=== PATIENT | female | born 1930 | race American Indian/Alaskan Native ===

== ENCOUNTER 2017-03-01 09:44 | Emergency (ER) | payer MEDICARE ==
[2017-03-01 11:16] LABS: Anion Gap 18 mmol/L; BUN/Creatinine Ratio 11.42; Blood Urea Nitrogen 8 mg/dL (7-17); Calcium 9.3 mg/dL (8.4-10.2); Carbon Dioxide 28 mmol/L (22-30); Chloride 99.4 mmol/L (98-107); Glucose 109 mg/dL (65-100); Hematocrit 37.9 % (30.3-42.9); Hemoglobin 12.5 gm/dl (10.1-14.3); Mean Corpuscular HGB Conc 33 % (30-34); Mean Corpuscular Hemoglobin 28 pg (28-32); Mean Corpuscular Volume 86 fl (79-97); Platelet Count 219 K/mm3 (140-440); Potassium 3.9 mmol/L (3.6-5.0); Red Blood Count 4.39 M/mm3 (3.65-5.03); Red Cell Distribution Width 16.3 % (13.2-15.2); Sodium 141 mmol/L (137-145); White Blood Count 4.3 K/mm3 (4.5-11.0)
[2017-03-01 12:12] LABS: Basophils % (Manual) 0 % (0.0-1.8); Blastocytes % (Manual) 0 %
[2017-03-01 12:13] LABS: Schistocytes Rare
[2017-03-01 12:14] LABS: Burr Cells 1+; Ovalocytes Few; Poikilocytosis 1+
[2017-03-01 12:15] LABS: Crenated RBC Rare; Diff Status Complete; Helmet Cells Rare; Platelet Estimate Consistent w Auto; Smudge Cells Rare
[2017-03-01] MEDS ORDERED: TYLENOL PO ONE (12:43)
[2017-03-01] MEDS ORDERED: FLONASE NS ONE (12:43)
--- NOTE | 2017-03-01 12:44 | Emergency Department Report ---
ED General Adult HPI - General Chief complaint: Dizziness Stated complaint: DIZZY,RT EAR/SINUS PAIN Time Seen by Provider: 03/01/17 12:32 Source: patient, RN notes reviewed Mode of arrival: Ambulatory Limitations: No Limitations - History of Present Illness Initial comments: This is an 86-year-old female. She is previously unknown to me. Her primary care doctor is Dr. Olea. She has a past medical history of hypertension. The patient presents to the ER with 1 week of frontal sinus pressure and pain, nasal pain, right-sided ear pain. The pain is achy. It increases with palpation, it decreases with rest. There is no severe, sudden, thunderclap headache. There is no neck pain. There is no focal extremity weakness or numbness. There is no change in vision. There is no change in speech. There is no chest pain or shortness of breath. There are no irritative or obstructive urinary symptoms. Patient denies tinnitus. Patient denies vertigo. Patient also reports that she feels somewhat dizzy, but she describes syncope. There is no posterior leg pain. There is no posterior leg swelling. No recent surgeries within the past month. Patient ambulates at baseline with a walker, and lives in a senior citizen community. -: Gradual Location: face Severity scale (0 -10): 0 Quality: aching Consistency: intermittent Worsens with: movement Associated Symptoms: headaches. denies: confusion, chest pain, cough, diaphoresis, loss of appetite, shortness of breath, syncope, weakness - Related Data Previous Rx's Medication Instructions Recorded Last Taken Type Chlorthalidone [Thalitone] 25 mg PO QDAY #14 tablet 12/10/15 Unknown Rx Acetaminophen [Tylenol Arthritis] 650 mg PO Q6HR PRN #30 tablet.er 03/01/17 Unknown Rx Fluticasone [Flonase] 1 spray NS QDAY #1 bottle 03/01/17 Unknown Rx Allergies Allergy/AdvReac Type Severity Reaction Status Date / Time No Known Allergies Allergy Verified 10/19/16 06:48 ED Review of Systems ROS: Stated complaint: DIZZY,RT EAR/SINUS PAIN Other details as noted in HPI Constitutional: denies: fever, malaise Eyes: denies: eye discharge, vision change ENT: ear pain, congestion. denies: throat pain, hearing loss, epistaxis Respiratory: denies: shortness of breath Cardiovascular: denies: chest pain, syncope Gastrointestinal: denies: abdominal pain Genitourinary: as per HPI. denies: urgency, dysuria Musculoskeletal: arthralgia, myalgia, other (chronic) Neurological: denies: headache, weakness, numbness, paresthesias, abnormal gait , vertigo ED Past Medical Hx - Past Medical History Previous Medical History?: Yes Hx Hypertension: Yes Additional medical history: No history of DVT. States not on an anticoagulant now. - Surgical History Past Surgical History?: Yes Additional Surgical History: carpel tunnel bilateral. right knee replacement. "left lung surgery" - Social History Smoking Status: Never Smoker Substance Use Type: None - Medications Home Medications: Home Medications Medication Instructions Recorded Confirmed Last Taken Type Chlorthalidone [Thalitone] 25 mg PO QDAY #14 tablet 12/10/15 Unknown Rx Acetaminophen [Tylenol Arthritis] 650 mg PO Q6HR PRN #30 tablet.er 03/01/17 Unknown Rx Fluticasone [Flonase] 1 spray NS QDAY #1 bottle 03/01/17 Unknown Rx ED Physical Exam - General Limitations: No Limitations General appearance: alert, in no apparent distress - Head Head exam: Present: atraumatic, normocephalic - Eye Eye exam: Present: normal appearance, PERRL, EOMI. Absent: nystagmus - ENT ENT exam: Present: normal exam, normal orophraynx, mucous membranes moist, TM's normal bilaterally, normal external ear exam, other (there is no mastoid tenderness. There is frontal sinus tenderness. There is maxillary sinus tenderness) - Neck Neck exam: Present: normal inspection, full ROM. Absent: tenderness, meningismus - Respiratory Respiratory exam: Present: normal lung sounds bilaterally. Absent: respiratory distress, wheezes, rales, rhonchi, stridor, chest wall tenderness, accessory muscle use, decreased breath sounds, prolonged expiratory - Cardiovascular Cardiovascular Exam: Present: regular rate, normal rhythm, normal heart sounds. Absent: bradycardia, tachycardia, irregular rhythm, systolic murmur, diastolic murmur, rubs, gallop - GI/Abdominal GI/Abdominal exam: Present: soft, normal bowel sounds. Absent: distended, tenderness, guarding, rebound, rigid, pulsatile mass - Extremities Exam Extremities exam: Present: normal inspection, full ROM, normal capillary refill. Absent: pedal edema, joint swelling, calf tenderness - Back Exam Back exam: Present: normal inspection, full ROM. Absent: tenderness, CVA tenderness (R), CVA tenderness (L), muscle spasm, paraspinal tenderness, vertebral tenderness - Neurological Exam Neurological exam: Present: alert, oriented X3, normal gait (the patient walks with a walker, and with minimal assistance with a one-person assist), other ( Extraocular movements intact. Tongue midline. No facial droop. Facial sensation intact to light touch in the V1, V2, V3 distribution bilaterally. 5 and 5 strength in 4 extremities.. Sensation is intact to light touch in 4 extremities.). Absent: motor sensory deficit - Psychiatric Psychiatric exam: Present: normal affect, normal mood - Skin Skin exam: Present: warm, dry, intact, normal color. Absent: rash ED Course Vital Signs 03/01/17 03/01/17 03/01/17 10:30 12:03 13:25 Temperature 98.5 F Pulse Rate 75 Respiratory 18 16 18 Rate Blood Pressure 109/76 Blood Pressure [Left] O2 Sat by Pulse 100 Oximetry 03/01/17 03/01/17 14:25 15:16 Temperature Pulse Rate 66 Respiratory 18 18 Rate Blood Pressure Blood Pressure 150/78 [Left] O2 Sat by Pulse 98 Oximetry ED Medical Decision Making - Lab Data Result diagrams: 03/01/17 10:47 03/01/17 10:47 Vital Signs 03/01/17 03/01/17 10:30 12:03 Temperature 98.5 F Pulse Rate 75 Respiratory 18 16 Rate Blood Pressure 109/76 O2 Sat by Pulse 100 Oximetry Lab Results 03/01/17 03/01/17 Range/Units 10:47 10:47 WBC 4.3 L (4.5-11.0) K/mm3 RBC 4.39 (3.65-5.03) M/mm3 Hgb 12.5 (10.1-14.3) gm/dl Hct 37.9 (30.3-42.9) % MCV 86 (79-97) fl MCH 28 (28-32) pg MCHC 33 (30-34) % RDW 16.3 H (13.2-15.2) % Plt Count 219 (140-440) K/mm3 Add Manual Diff Complete Total Counted 100 Seg Neutrophils % [employer] Intern Seg Neuts % (Manual) 39.0 L (40.0-70.0) % Band Neutrophils % 0 % Lymphocytes % (Manual) 54.0 H (13.4-35.0) % Reactive Lymphs % (Man) 0 % Monocytes % (Manual) 6.0 (0.0-7.3) % Eosinophils % (Manual) 1.0 (0.0-4.3) % Basophils % (Manual) 0 (0.0-1.8) % Metamyelocytes % 0 % Myelocytes % 0 % Promyelocytes % 0 % Blast Cells % 0 % Nucleated RBC % Not Reportable Seg Neutrophils # Man 1.7 L (1.8-7.7) K/mm3 Band Neutrophils # 0.0 K/mm3 Lymphocytes # (Manual) 2.3 (1.2-5.4) K/mm3 Abs React Lymphs (Man) 0.0 K/mm3 Monocytes # (Manual) 0.3 (0.0-0.8) K/mm3 Eosinophils # (Manual) 0.0 (0.0-0.4) K/mm3 Basophils # (Manual) 0.0 (0.0-0.1) K/mm3 Metamyelocytes # 0.0 K/mm3 Myelocytes # 0.0 K/mm3 Promyelocytes # 0.0 K/mm3 Blast Cells # 0.0 K/mm3 WBC Morphology Not Reportable Hypersegmented Neuts Not Reportable Hyposegmented Neuts Not Reportable Hypogranular Neuts Not Reportable Smudge Cells Rare Toxic Granulation Not Reportable Toxic Vacuolation Not Reportable Dohle Bodies Not Reportable Pelger-Huet Anomaly Not Reportable Jevon Rods Not Reportable Platelet Estimate Consistent w auto Clumped Platelets Not Reportable Plt Clumps, EDTA Not Reportable Large Platelets Not Reportable Giant Platelets Not Reportable Platelet Satelliting Not Reportable Plt Morphology Comment Not Reportable RBC Morphology Not Reportable Dimorphic RBCs Not Reportable Polychromasia Not Reportable Hypochromasia Not Reportable Poikilocytosis 1+ Anisocytosis Not Reportable Microcytosis Not Reportable Macrocytosis Not Reportable Spherocytes Not Reportable Pappenheimer Bodies Not Reportable Sickle Cells Not Reportable Target Cells Not Reportable Tear Drop Cells Not Reportable Ovalocytes Few Helmet Cells Rare Le-[place] Bodies Not Reportable Lu[place]ne Rings Not Reportable Daniel Cells 1+ Bite Cells Not Reportable Crenated Cell Rare Elliptocytes Not Reportable Acanthocytes (Spur) Not Reportable Rouleaux Not Reportable Hemoglobin C Crystals Not Reportable Schistocytes Rare Malaria parasites Not Reportable Jorge Bodies Not Reportable Hem Pathologist Commnt No Sodium 141 (137-145) mmol/L Potassium 3.9 (3.6-5.0) mmol/L Chloride 99.4 (98-107) mmol/L Carbon Dioxide 28 (22-30) mmol/L Anion Gap 18 mmol/L BUN 8 (7-17) mg/dL Creatinine 0.7 (0.7-1.2) mg/dL Estimated GFR > 60 ml/min BUN/Creatinine Ratio 11.42 % Glucose 109 H (65-100) mg/dL Calcium 9.3 (8.4-10.2) mg/dL - EKG Data -: EKG Interpreted by Me - EKG Data 03/01/17 13:47 normal sinus, 69 bpm, normal axis, normal intervals, poor R-wave progression, abnormal EKG, not morphologically consistent with STEMI, appears unchanged when compared to prior EKG from October 2016, with the exception of progression of poor R-wave progression. - Radiology Data Radiology results: report reviewed, image reviewed Noncontrast CT scan of the brain is negative for acute disease - Medical Decision Making Differential diagnosis: Sinusitis, vertigo, intracranial hemorrhage, viral syndrome, bronchitis Assessment and plan: 86-year-old female with complaint of facial pain, ear pain , stuffiness, nonspecific dizziness. She is afebrile, with reassuring vital signs, has a GCS of 15, with an NIH score of 0. There is no temporal artery tenderness, there is no change in vision, there is no jaw claudication. Therefore, I think temporal arteritis is unlikely. She had reproducible sinus tenderness and maxillary sinus tenderness. There is no mastoid tenderness, and her bilateral ear examinations were unremarkable. She walks with a steady gait with minimal assistance, laboratory studies, has a GCS of 15, with an NIH score is 0. The patient felt improved at the symptomatic therapy, and is suitable follow up with outpatient primary care doctor at this time. Noncontrast CT scan of the brain is negative for acute findings. Critical care attestation.: If time is entered above; I have spent that time in minutes in the direct care of this critically ill patient, excluding procedure time. ED Disposition Clinical Impression: Facial pain Disposition: DC-01 TO HOME OR SELFCARE Is pt being admited?: No Does the pt Need Aspirin: No Condition: Stable Instructions: Sinusitis (ED) Additional Instructions: Take the medications as needed/directed. Follow-up with the primary care doctor within the next week. Return to the ER right away with fevers, chills, chest pain, shortness of breath, confusion, unsteady gait, inability to tolerate liquid feeds. Prescriptions: Acetaminophen [Tylenol Arthritis] 650 mg PO Q6HR PRN #30 tablet.er PRN Reason: Pain Fluticasone [Flonase] 1 spray NS QDAY #1 bottle Referrals: PRIMARY CAREMD [Primary Care Provider] - 3-5 Days JEREMI UNDERWOOD MD [Staff Physician] - 3-5 Days
--- NOTE | 2017-03-01 13:33 | Cat Scan Report ---
CT scan of head without contrast: History: Facial pain, dizziness. Findings: Ventricles are normal in size and midline in location. No evidence of acute ischemia, hemorrhage or mass. Mild volume loss. No extra-axial fluid collection. Normal brainstem and cerebellum. Normal sinuses and mastoid air cells. Impression: Mild volume loss. No acute intracranial abnormality.
[2017-03-01 14:43] LABS: Bilirubin,Urine NEG (Negative); Blood,Urine NEG (Negative); Ketones,Urine NEG (Negative); Leukocyte Esterase,Urine NEG (Negative); Mucus,Urine 1+ /HPF; Nitrite,Urine NEG (Negative); Protein,Urine <15 mg/dL mg/dL (Negative); Urobilinogen,Urine < 2.0 mg/dL (<2.0); WBC,Urine < 1.0 /HPF (0.0-6.0)
[2017-03-01 15:16] VITALS: BP 150/78
== END 2017-03-01 15:30 | disposition home or self-care (01) ==
LOC: ED 09:44
DX: R51 Headache (principal); I10 Essential (primary) hypertension
CPT/HCPCS: 36415; 51701; 70450; 80048; 81001; 85007; 85025; 93005; 93010

== ENCOUNTER 2017-06-27 11:06 | Emergency (ER) | payer MEDICARE ==
--- NOTE | 2017-06-27 13:46 | Emergency Department Report ---
- General Chief complaint: Skin/Abscess/Foreign Body Stated complaint: BOIL ON LIP Time Seen by Provider: 06/27/17 13:45 Source: patient, family Mode of arrival: Ambulatory Limitations: No Limitations - History of Present Illness Initial comments: Patient here states that she has a boil on her right labia. Patient fitted started has a scratch and she started scratching it earlier this week and then it got bigger. She denies any urinary burning frequency or urgency. Denies any similar problem. She said her pain is rated 10 to her vaginal area. Denies any vaginal discharge. Denies any back or abdominal pain. Denies any fever or chills. Denies any drainage from site. She says she was taking over- the-counter pain medication but she thinks that it needs to be looked at and she cannot get in touch with her doctor. complaint: abscess/boil Onset/Timin -: week(s) Tetanus Up to Date: no Location: genitals Severity: mild Severity scale (0 -10): 3 Quality: other (sore) Consistency: intermittent Improves with: immobilization, rest Worsens with: palpation, movement Context: other (she reports that she has a abscess) Associated symptoms: denies other symptoms Treatments Prior to Arrival: OTC topical medication, other (OTC meds) - Related Data Previous Rx's Medication Instructions Recorded Last Taken Type Chlorthalidone [Thalitone] 25 mg PO QDAY #14 tablet 12/10/15 Unknown Rx Acetaminophen [Tylenol Arthritis] 650 mg PO Q6HR PRN #30 tablet.er 03/01/17 Unknown Rx Fluticasone [Flonase] 1 spray NS QDAY #1 bottle 03/01/17 Unknown Rx Acetaminophen/Codeine [Tylenol 1 tab PO Q6H PRN #12 tab 06/27/17 Unknown Rx /Codeine # 3 tab] Ibuprofen [Motrin] 600 mg PO Q8H PRN #12 tablet 06/27/17 Unknown Rx Sulfamethoxazole/Trimethoprim 1 each PO BID #20 tablet 06/27/17 Unknown Rx [Bactrim DS TAB] Allergies Allergy/AdvReac Type Severity Reaction Status Date / Time No Known Allergies Allergy Verified 10/19/16 06:48 Abscess Boil HPI - HPI Chief Complaint: Skin/Abscess/Foreign Body Stated Complaint: BOIL ON LIP Time Seen by Provider: 06/27/17 13:45 Home Medications: Previous Rx's Medication Instructions Recorded Last Taken Type Chlorthalidone [Thalitone] 25 mg PO QDAY #14 tablet 12/10/15 Unknown Rx Acetaminophen [Tylenol Arthritis] 650 mg PO Q6HR PRN #30 tablet.er 03/01/17 Unknown Rx Fluticasone [Flonase] 1 spray NS QDAY #1 bottle 03/01/17 Unknown Rx Acetaminophen/Codeine [Tylenol 1 tab PO Q6H PRN #12 tab 06/27/17 Unknown Rx /Codeine # 3 tab] Ibuprofen [Motrin] 600 mg PO Q8H PRN #12 tablet 06/27/17 Unknown Rx Sulfamethoxazole/Trimethoprim 1 each PO BID #20 tablet 06/27/17 Unknown Rx [Bactrim DS TAB] Allergies/Adverse Reactions: Allergies Allergy/AdvReac Type Severity Reaction Status Date / Time No Known Allergies Allergy Verified 10/19/16 06:48 ED Review of Systems ROS: Stated complaint: BOIL ON LIP Other details as noted in HPI Comment: All other systems reviewed and negative Constitutional: no symptoms reported Respiratory: no symptoms reported Cardiovascular: denies: chest pain, palpitations, dyspnea on exertion, edema, syncope Gastrointestinal: denies: abdominal pain, nausea, vomiting, diarrhea Genitourinary: other (patient reports that she has abscess to her right labia). denies: urgency, dysuria, frequency, hematuria, discharge Musculoskeletal: denies: back pain, arthralgia Skin: other (abscess to right labia) Neurological: denies: headache ED Past Medical Hx - Past Medical History Previous Medical History?: Yes Hx Hypertension: Yes Hx Seizures: Yes Additional medical history: No history of DVT. States not on an anticoagulant now. - Surgical History Past Surgical History?: Yes Additional Surgical History: carpel tunnel bilateral. right knee replacement. "left lung surgery" - Family History Family history: no significant - Social History Smoking Status: Never Smoker Substance Use Type: None - Medications Home Medications: Home Medications Medication Instructions Recorded Confirmed Last Taken Type Chlorthalidone [Thalitone] 25 mg PO QDAY #14 tablet 12/10/15 Unknown Rx Acetaminophen [Tylenol Arthritis] 650 mg PO Q6HR PRN #30 tablet.er 03/01/17 Unknown Rx Fluticasone [Flonase] 1 spray NS QDAY #1 bottle 03/01/17 Unknown Rx Acetaminophen/Codeine [Tylenol 1 tab PO Q6H PRN #12 tab 06/27/17 Unknown Rx /Codeine # 3 tab] Ibuprofen [Motrin] 600 mg PO Q8H PRN #12 tablet 06/27/17 Unknown Rx Sulfamethoxazole/Trimethoprim 1 each PO BID #20 tablet 06/27/17 Unknown Rx [Bactrim DS TAB] ED Physical Exam - General Limitations: No Limitations General appearance: alert, in no apparent distress - Head Head exam: Present: atraumatic, normocephalic, normal inspection - Eye Eye exam: Present: normal appearance, PERRL, EOMI Pupils: Present: normal accommodation - ENT ENT exam: Present: normal exam, normal orophraynx, mucous membranes moist - Neck Neck exam: Present: normal inspection, full ROM. Absent: tenderness, meningismus, lymphadenopathy - Respiratory Respiratory exam: Present: normal lung sounds bilaterally. Absent: respiratory distress, chest wall tenderness - Cardiovascular Cardiovascular Exam: Present: regular rate, normal rhythm, normal heart sounds. Absent: systolic murmur, diastolic murmur - GI/Abdominal GI/Abdominal exam: Present: soft. Absent: distended, rebound, rigid, normal bowel sounds - External exam: Present: erythema, swelling (right labia). Absent: normal external exam, lesions, lacerations, ecchymosis, bleeding Speculum exam: Absent: tissue, laceration - Expanded Exam Expanded Female exam: Present: vulvar erythema (patient with erythema and generated mild fluctuance to right labia.), vulvar tenderness (right labia). Absent: vaginal laceration, tissue present in vagina, herpetic lesions, foreign body - Extremities Exam Extremities exam: Present: normal inspection, full ROM, normal capillary refill , other (clubbing, cyanosis or edema. +2 pulses to all extremities. No neurovascular compromise). Absent: tenderness, pedal edema, joint swelling, calf tenderness - Back Exam Back exam: Present: normal inspection, full ROM. Absent: tenderness, CVA tenderness (R), CVA tenderness (L), muscle spasm, paraspinal tenderness, vertebral tenderness, rash noted - Neurological Exam Neurological exam: Present: alert, oriented X3, normal gait, reflexes normal. Absent: motor sensory deficit - Psychiatric Psychiatric exam: Present: normal affect, normal mood - Skin Skin exam: Present: warm, dry, erythema, other (abscess right labia) - Expanded Skin Exam Expanded Type of lesion: Present: abscess Distribution of rash: genitals (right labia) Description of rash: Present: size (4 x2 cm), tenderness, erythematous, swelling , fluctuant (mild fluctuance). Absent: discharge, indurated ED Course Vital Signs 06/27/17 11:15 Temperature 98.1 F Pulse Rate 84 Respiratory 16 Rate Blood Pressure 172/88 O2 Sat by Pulse 98 Oximetry - Reevaluation(s) Reevaluation #1: 06/27/17 17:31 She given ibuprofen 600 mg without any relief of pain from vaginal area therefore she was given [place] 12/3251 tablets by mouth. Please see procedure note for incision and drainage. Patient is stable tolerated procedure well - I & D Right Vagina Type of Procedure: Complex Site: labia majora Blade Size: 11 I & D Procedure: betadine prep, sterile drapes applied, sterile dressing applied , gauze wick placed Progress: Procedure note: Under sterile procedure brought along an abscess cleansed with iodine and normal saline. Patient 5 mL of 2% lidocaine instilled in abscess area. #11-gauge blade used to make 0.25 centimeter incision. Expressed a small amount of copious serous saying drainage from site. Area around fluctuance still with indurated area. Iodoform gauze used to pack site and sterile dry dressing in place with had. Patient given tetanus vaccination. She tolerated procedure well and told to return on Saturday for reevaluation of abscess and possible removal of packing. ED Medical Decision Making - Medical Decision Making ED course: [place] wrap with Bartolone and abscess to right labia majora. Please refer to procedure note for details on incision and drainage. I chose to pack site with iodoform packing and instead of work catheter after collaborating with Dr. Abdullahi once area to be packed with iodoform packing. Patient tolerated procedure well. She was given Boostrix 0.5 mL, Motrin 600 mg and [place] 5/325 2 tablets prior to procedure. Patient was given clindamycin 600 mg IM after procedure and she tolerated well. I discussed with patient that she has to keep affected area clean and dry and apply warm compresses 3-4 times a day to affected area to chest change gauze dressing in but to leave packing in until seen in 4 days. Patient was understanding the discharge diagnosis and treatment plan and discharged home with prescription for Motrin, Tylenol 3 and Bactrim DS. Patient discharged from emergency room and she will be driven home by her family member. Critical care attestation.: If time is entered above; I have spent that time in minutes in the direct care of this critically ill patient, excluding procedure time. ED Disposition Clinical Impression: Bartholin's gland abscess, Vaginal pain, Cellulitis of female genitalia Disposition: TO HOME OR SELFCARE Is pt being admited?: No Does the pt Need Aspirin: No Condition: Stable Instructions: Incision and Drainage (ED), Abscess (ED), Cellulitis (ED) Additional Instructions: Take antibiotic as prescribed Follow-up with your primary care physician in 5 days days Keep affected area clean and dry. Followed discharge instruction on acute wound care . Please return to emergency room if you develop increasing redness, streaking, fever, difficulty moving in and the left forearm and increase in pain otherwise return to the emergency room in 4 days to reevaluate abscess and possible removal of packing. Plan warm compresses to affected area 3-4 times a day. Do not drive or operate heavy machinery while taking Tylenol No. 3 as this medication causes drowsiness Please do not remove packing Prescriptions: Acetaminophen/Codeine [Tylenol /Codeine # 3 tab] 1 tab PO Q6H PRN #12 tab PRN Reason: Pain Ibuprofen [Motrin] 600 mg PO Q8H PRN #12 tablet PRN Reason: Pain Sulfamethoxazole/Trimethoprim [Bactrim DS TAB] 1 each PO BID #20 tablet Referrals: PRIMARY CARE, [Primary Care Provider] - 07/02/17 return to, emergency room [Other] - 07/01/17
[2017-06-27] MEDS ORDERED: XYLOCAINE 1% MPF 5 mL INFILTRATI ONE (13:47)
[2017-06-27] MEDS ORDERED: MOTRIN PO ONE (13:47)
[2017-06-27] MEDS ORDERED: BOOSTRIX IM ONE (13:48)
[2017-06-27] MEDS ORDERED: NORCO 5/325 PO ONE (16:41)
[2017-06-27] MEDS ORDERED: NORCO 5/325 ONE (16:43)
[2017-06-27 17:50] VITALS: BP 160/70
== END 2017-06-27 17:46 | disposition home or self-care (01) ==
LOC: ED 11:06
DX: N75.1 Abscess of Bartholin's gland (principal); I10 Essential (primary) hypertension
CPT/HCPCS: 90471; 90715

== ENCOUNTER 2017-07-01 11:19 | Emergency (ER) | payer MEDICARE ==
[2017-07-01 11:33] VITALS: BP 133/76
--- NOTE | 2017-07-01 15:00 | Emergency Department Report ---
- General Chief Complaint: Laceration/Recheck/Suture Stated Complaint: WOUND CHECK Source: patient Mode of arrival: Ambulatory Limitations: No Limitations - History of Present Illness Initial Comments: pt presents for wound check s/p I&D for bartholin cyst 3 days ago, pt denies fever or chills no n/v no bleeding no abdominal pain vaginal bleeding or discharge. Onset/Timin -: days(s), unknown Location: genitals, other (bartholin cyst right labia ) Place: home Patient Tetanus UTD: Yes Associated Symptoms: pain - Related Data Previous Rx's Medication Instructions Recorded Last Taken Type Chlorthalidone [Thalitone] 25 mg PO QDAY #14 tablet 12/10/15 Unknown Rx Acetaminophen [Tylenol Arthritis] 650 mg PO Q6HR PRN #30 tablet.er 03/01/17 Unknown Rx Fluticasone [Flonase] 1 spray NS QDAY #1 bottle 03/01/17 Unknown Rx Acetaminophen/Codeine [Tylenol 1 tab PO Q6H PRN #12 tab 06/27/17 Unknown Rx /Codeine # 3 tab] Ibuprofen [Motrin] 600 mg PO Q8H PRN #12 tablet 06/27/17 Unknown Rx Sulfamethoxazole/Trimethoprim 1 each PO BID #20 tablet 06/27/17 Unknown Rx [Bactrim DS TAB] Allergies Allergy/AdvReac Type Severity Reaction Status Date / Time No Known Allergies Allergy Verified 10/19/16 06:48 ED Review of Systems ROS: Stated complaint: WOUND CHECK Other details as noted in HPI Constitutional: denies: chills, fever Eyes: denies: eye pain, eye discharge, vision change ENT: denies: ear pain, throat pain Respiratory: denies: cough, shortness of breath, wheezing Cardiovascular: denies: chest pain, palpitations Endocrine: no symptoms reported Gastrointestinal: denies: abdominal pain, nausea, diarrhea Genitourinary: denies: urgency, dysuria, discharge Musculoskeletal: denies: back pain, joint swelling, arthralgia Skin: other (abascess right labia) Neurological: denies: headache, weakness, paresthesias Psychiatric: denies: anxiety, depression Hematological/Lymphatic: denies: easy bleeding, easy bruising ED Past Medical Hx - Past Medical History Previous Medical History?: Yes Hx Hypertension: Yes Hx Seizures: Yes Additional medical history: No history of DVT. States not on an anticoagulant now. - Surgical History Past Surgical History?: Yes Additional Surgical History: carpel tunnel bilateral. right knee replacement. "left lung surgery" - Social History Smoking Status: Never Smoker Substance Use Type: Alcohol - Medications Home Medications: Home Medications Medication Instructions Recorded Confirmed Last Taken Type Chlorthalidone [Thalitone] 25 mg PO QDAY #14 tablet 12/10/15 Unknown Rx Acetaminophen [Tylenol Arthritis] 650 mg PO Q6HR PRN #30 tablet.er 03/01/17 Unknown Rx Fluticasone [Flonase] 1 spray NS QDAY #1 bottle 03/01/17 Unknown Rx Acetaminophen/Codeine [Tylenol 1 tab PO Q6H PRN #12 tab 06/27/17 Unknown Rx /Codeine # 3 tab] Ibuprofen [Motrin] 600 mg PO Q8H PRN #12 tablet 06/27/17 Unknown Rx Sulfamethoxazole/Trimethoprim 1 each PO BID #20 tablet 06/27/17 Unknown Rx [Bactrim DS TAB] ED Physical Exam - General Limitations: No Limitations General appearance: alert, in no apparent distress - Head Head exam: Present: atraumatic, normocephalic - Eye Eye exam: Present: normal appearance - ENT ENT exam: Present: mucous membranes moist - Neck Neck exam: Present: normal inspection - Respiratory Respiratory exam: Present: normal lung sounds bilaterally. Absent: respiratory distress - Cardiovascular Cardiovascular Exam: Present: regular rate, normal rhythm. Absent: systolic murmur, diastolic murmur, rubs, gallop - GI/Abdominal GI/Abdominal exam: Present: soft, normal bowel sounds - Rectal Rectal exam: Present: deferred - External exam: Present: other (bartholin cyst s/p I&D ) - Extremities Exam Extremities exam: Present: normal inspection - Back Exam Back exam: Present: normal inspection - Neurological Exam Neurological exam: Present: alert, oriented X3 - Psychiatric Psychiatric exam: Present: normal affect, normal mood - Skin Skin exam: Present: warm, dry, intact, normal color, other (abscess bartholin ) . Absent: rash ED Course Vital Signs 07/01/17 11:31 Temperature 98.4 F Pulse Rate 73 Respiratory 16 Rate Blood Pressure 133/76 O2 Sat by Pulse 95 Oximetry ED Medical Decision Making - Medical Decision Making pt presents for wound check s/p bartholin cyst I&d 3 days ago, wick removed, no erythema scant serous discharge no erythema no symptoms of infection pt given wound care instructions pt will follow up Dr. Muhammad [phone] in 1-2 days, pt verbalized agreement and understanding of discharge plan. Critical care attestation.: If time is entered above; I have spent that time in minutes in the direct care of this critically ill patient, excluding procedure time. ED Disposition Clinical Impression: Wound check, abscess Disposition: TO HOME OR SELFCARE Is pt being admited?: No Does the pt Need Aspirin: No Condition: Good Instructions: Bartholin Cyst (ED) Referrals: PRIMARY CAREMD [Primary Care Provider] - 3-5 Days DAVID MUHAMMAD MD [Staff Physician] - 3-5 Days Forms: Work/School Release Form(ED) Time of Disposition: 15:01
== END 2017-07-01 15:06 | disposition home or self-care (01) ==
LOC: ED 11:19
DX: Z48.01 Encounter for change or removal of surgical wound dressing (principal); I10 Essential (primary) hypertension

== ENCOUNTER 2018-05-15 12:57 | Emergency (ER) | payer MEDICARE ==
[2018-05-15 13:06] VITALS: BP 172/80
--- NOTE | 2018-05-15 13:26 | Emergency Department Report ---
ED Headache HPI - General Chief Complaint: Headache Stated Complaint: SINUS Time Seen by Provider: 05/15/18 13:10 - History of Present Illness Initial Comments: Patient is a 7-year-old asthmatic female who is presenting with sinus pressure and headache. Patient states he has had a frontal headache as well as bilateral maxillary sinuses past 2-3 days. Patient denies any fever cough "congestion of nausea vomiting at this time. Patient states as a pressure sensation in his anterolateral tenderness severity. Patient's vagina take Flonase however it is not helped. These symptoms by themselves. Allergies/Adverse Reactions: Allergies No Known Allergies Allergy (Verified 10/19/16 06:48) Home Medications: Ambulatory Orders Chlorthalidone [Thalitone] 25 mg PO QDAY #14 tablet 12/10/15 Acetaminophen [Tylenol Arthritis] 650 mg PO Q6HR PRN #30 tablet.er 03/01/17 Fluticasone [Flonase] 1 spray NS QDAY #1 bottle 03/01/17 Acetaminophen/Codeine [Tylenol /Codeine # 3 tab] 1 tab PO Q6H PRN #12 tab Ibuprofen [Motrin] 600 mg PO Q8H PRN #12 tablet 06/27/17 Sulfamethoxazole/Trimethoprim [Bactrim DS TAB] 1 each PO BID #20 tablet Amoxicillin/Potassium Clav [Augmentin 875-125 Tablet] 1 each PO BID #14 tablet 05/15/18 Fluticasone [Flonase] 1 spray NS QDAY #1 bottle 05/15/18 HYDROcodone/APAP 5-325 [[place] 5/325] 1 each PO Q4HR PRN #12 tablet 05/15/18 predniSONE [Deltasone] 10 mg PO QDAY #5 tab 05/15/18 ED Review of Systems ROS: Stated complaint: SINUS Other details as noted in HPI Comment: All other systems reviewed and negative ED Past Medical Hx - Past Medical History Previous Medical History?: Yes Hx Hypertension: Yes Hx Seizures: Yes Additional medical history: No history of DVT. States not on an anticoagulant now. - Surgical History Past Surgical History?: Yes Additional Surgical History: carpel tunnel bilateral. right knee replacement. "left lung surgery" - Social History Smoking Status: Never Smoker Substance Use Type: None - Medications Home Medications: Home Medications Medication Instructions Recorded Confirmed Last Taken Type Chlorthalidone [Thalitone] 25 mg PO QDAY #14 tablet 12/10/15 Unknown Rx Acetaminophen [Tylenol Arthritis] 650 mg PO Q6HR PRN #30 tablet.er 03/01/17 Unknown Rx Fluticasone [Flonase] 1 spray NS QDAY #1 bottle 03/01/17 Unknown Rx Acetaminophen/Codeine [Tylenol 1 tab PO Q6H PRN #12 tab 06/27/17 Unknown Rx /Codeine # 3 tab] Ibuprofen [Motrin] 600 mg PO Q8H PRN #12 tablet 06/27/17 Unknown Rx Sulfamethoxazole/Trimethoprim 1 each PO BID #20 tablet 06/27/17 Unknown Rx [Bactrim DS TAB] Amoxicillin/Potassium Clav 1 each PO BID #14 tablet 05/15/18 Unknown Rx [Augmentin 875-125 Tablet] Fluticasone [Flonase] 1 spray NS QDAY #1 bottle 05/15/18 Unknown Rx HYDROcodone/APAP 5-325 [[place] 1 each PO Q4HR PRN #12 tablet 05/15/18 Unknown Rx 5/325] predniSONE [Deltasone] 10 mg PO QDAY #5 tab 05/15/18 Unknown Rx ED Physical Exam - General Limitations: No Limitations General appearance: alert, in no apparent distress - Head Head exam: Present: atraumatic, normocephalic - Eye Eye exam: Present: normal appearance - ENT ENT exam: Present: mucous membranes moist, other (bilateral maxillary and frontal sinusitis) - Neck Neck exam: Present: normal inspection - Respiratory Respiratory exam: Present: normal lung sounds bilaterally. Absent: respiratory distress - Cardiovascular Cardiovascular Exam: Present: regular rate, normal rhythm. Absent: systolic murmur, diastolic murmur, rubs, gallop - GI/Abdominal GI/Abdominal exam: Present: soft, normal bowel sounds - Extremities Exam Extremities exam: Present: normal inspection - Back Exam Back exam: Present: normal inspection - Neurological Exam Neurological exam: Present: alert, oriented X3 - Psychiatric Psychiatric exam: Present: normal affect, normal mood - Skin Skin exam: Present: warm, dry, intact, normal color. Absent: rash ED Course Vital Signs 05/15/18 13:03 Temperature 98.2 F Pulse Rate 68 Respiratory 18 Rate Blood Pressure 172/80 O2 Sat by Pulse 99 Oximetry Critical care attestation.: If time is entered above; I have spent that time in minutes in the direct care of this critically ill patient, excluding procedure time. ED Disposition Clinical Impression: Sinusitis Qualifiers: Sinusitis location: pansinusitis Chronicity: acute Recurrence: non-recurrent Qualified Code(s): J01.40 - Acute pansinusitis, unspecified Disposition: TO HOME OR SELFCARE Is pt being admited?: No Does the pt Need Aspirin: No Condition: Stable Instructions: Sinusitis (ED) Additional Instructions: Please follow-up with your primary doctor within the next week Time of Disposition: 13:26
== END 2018-05-15 14:00 | disposition home or self-care (01) ==
LOC: ED 12:57
DX: J32.9 Chronic sinusitis, unspecified (principal); I10 Essential (primary) hypertension
CPT/HCPCS: 99282